=== PATIENT | female | born 1945 | race Caucasian/White ===

== ENCOUNTER 2022-10-03 13:10 | Emergency (ER) | payer MEDICARE, SELFPAY ==
[2022-10-03 13:13] VITALS: BP 142/55; PULSE 81; RESP 18; TEMP 36.5; O2SAT 94
--- NOTE | 2022-10-03 14:00 | DI.RAD_ITS ---
Exam(s) XR HAND RT COMPLETE EXAM: XR HAND RT COMPLETE CLINICAL HISTORY: fall. TECHNIQUE: 2D digital imaging was performed of the right hand. Three images were obtained. AP, late ral and oblique views were obtained. COMPARISON: No exams were available for comparison FINDINGS: BONES: There is an acute oblique mildly displaced fracture of the shaft of 4th metacarpal. There is overriding of the fracture fragments. No bony destructive lesion is seen. JOINTS: No dislocation present. SOFT TISSUE: Normal. IMPRESSION: Acute displaced overriding fracture of the shaft of the 4th metacarpal bone. DATA REPOSITORY: RADIATION DOSE DELIVERED:
--- NOTE | 2022-10-03 14:02 | W.ED.GENAD ---
Discharge Plan Disposition Patient Disposition: Home Discharge Details Chief Complaint: Fall/Non TraumaCriteria Clinical Impression: Fall, Abrasion of left elbow, Fracture of fourth metacarpal bone of right hand Primary Care Provider: Unknown,Unknown ED Provider: Liliana Baltazar Discharge Instructions Instructions: Abrasion (ED), Hand Fracture (ED) Additional Instructions: Ice and elevate. Wear splint. Follow-up with orthopedics when you return home. Use Tylenol as needed for pain. Referrals: Robel Akers PA [[employer] [facility] [employer]] - Discharge Data Discharge Physician: Liliana Baltazar Medical Decision Making 77-year-old female presents for evaluation of right hand pain after injury. She did not hit her head or lose consciousness. She appears neurologically intact at this time. She has small amount of discomfort to her right hand and x-ray will be obtained. She declines tetanus vaccine. X-ray shows fracture right fourth metacarpal. Ulnar gutter splint placed by myself. Patient remained neurologically intact. She is from [place] of town. She will be given a copy of her x-ray on disc. She will follow-up with orthopedics when she returns home. She understands that she this may require surgery. She understands indications to return. HPI General Date/Time Provider Initiated Documentation: 10/03/22 13:44. HPI Narrative: 77-year-old female presents for evaluation after mechanical fall. Patient states that her pants got caught in something on the bottom of the camper. She fell forward injuring her right hand. She also got an abrasion to her left elbow. She did not hit her head or lose consciousness. Denies any neck or back pain. She was assisted up and able to ambulate without difficulty. Patient states that she does not get tetanus vaccines. She is not on any blood thinners. She is able to range her fingers but has pain over the fourth and fifth knuckles of her right hand. Denies any numbness or tingling. General Stated Complaint: Fall/Non TraumaCriteria NIRAV: 4 Review of Systems Musculoskeletal Comments: Right hand pain Integumentary/Breasts Comments: Left elbow skin tear Neurologic Comments: No numbness or tingling PFSH All Active Problems (Updated 10/03/22 @ 14:49 by Liliana Baltazar MD) Fall (Acute) Abrasion of left elbow (Acute) Fracture of fourth metacarpal bone of right hand (Acute) Social History Smoking risk assessment performed?: No Exam Narrative Exam Narrative: General: non-toxic, no respiratory distress, comfortable HEENT: normocephalic, atraumatic, lids and lashes normal, PERRL, EOMI, anicteric sclera, no conjunctival injection, moist oral mucosa Neck: No vertebral tenderness Musculoskeletal: Pelvis stable, full range of motion of legs, small skin tear to left elbow, no pain palpation, pain to palpation over right fourth and fifth MCP, able to fully range right fingers, 2+ radial pulses, no pain to palpation over right wrist, otherwise full range of motion of arms and legs, no tenderness to palpation. no clubbing, cyanosis, or edema Neurologic: appropriate for age, strength normal Psych: alert and oriented Skin: Multiple small bruises throughout arms, as above, otherwise no petechiae, no lesions, warm and dry Course Vital Signs Vital signs: Vital Signs Temperature 36.5 C 10/03/22 13:13 Pulse 81 10/03/22 13:13 Respiratory Rate 18 10/03/22 13:13 Blood Pressure 142/55 H 10/03/22 13:13 Pulse Oximetry 94 10/03/22 13:13 Temperature 36.5 C 10/03/22 13:13 Temperature Source Oral 10/03/22 13:13 Pulse 81 10/03/22 13:13 Respiratory Rate 18 10/03/22 13:13 Blood Pressure 142/55 H 10/03/22 13:13 Pulse Oximetry 94 10/03/22 13:13 Oxygen Delivery Method Room Air 10/03/22 13:13 Oxygen Flow Rate 0 10/03/22 13:13 Pain Level 5 10/03/22 13:13 Procedures Orthopedic Splinting/Casting Injury #1: Additional Comments: Indication, right fourth metacarpal fracture Procedure: Ulnar gutter Ortho-Glass splint Splint was placed by myself. Patient remained neurologically intact.
== END 2022-10-03 15:36 | disposition home or self-care (01) ==
PROVIDERS: Emergency Provider Emergency Medicine Emergency Medical Services
DX: S62.304A Unspecified fracture of fourth metacarpal bone, right hand, initial encounter for closed fracture (principal); S50.312A Abrasion of left elbow, initial encounter; W19.XXXA Unspecified fall, initial encounter
CPT/HCPCS: 29130; 99283; 73130